=== PATIENT | female | born 1965 | race Caucasian/White ===

== ENCOUNTER → 2021-09-13 15:37 | Outpatient (BNVA) | payer OTHER, SELFPAY | PROVIDERS: Family Provider Nurse Practitioner; PCP Nurse Practitioner; Visit Provider Family Medicine | DX: G47.00 Insomnia, unspecified (principal); L60.8 Other nail disorders; L65.9 Nonscarring hair loss, unspecified; R53.83 Other fatigue; Z76.89 Persons encountering health services in other specified circumstances | CPT/HCPCS: 80053; 84443; 85025 ==